=== PATIENT | male | born 1990 | race Caucasian/White ===

== ENCOUNTER 2024-01-30 13:42 | Outpatient (AMB) | payer OTHER, SELFPAY ==
--- NOTE | 2024-01-30 13:57 | MHC.PC.OV ---
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 Pt states that he has been getting ringing in his R ear almost every day now. Pt also states that he has been having R kidney pain that come and goes. Pt states that he had neck pain and he ca not lift things. 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 Pt c/o tinnitus worse in the morning some hearing loss and elevated BP at methadone clinic. Patient reports chronic right side LBP on and off pulsating', not related to physical activity and is concerned about kidney stones. He denies dysuria hematuria. Patient complains of chronic right shoulder pain worse when lifting or carrying heavy objects. He had bilateral carpal tunnel surgery in the past and would like to see hand surgeon to evaluate for recurrent carpal tunnel. Patient works at a [email or web address] business using his hands a lot. [facility] Surgical History (Updated 01/30/24 @ 14:12 by Jill Kilpatrick [facility]) History of surgical removal of ganglion cyst [place] teeth extracted Hx of hernia repair History of bilateral carpal tunnel release Family History Father Hypertension COPD (chronic obstructive pulmonary disease) Mother Mental health disorder Substance use disorder Social History (Updated 01/30/24 @ 15:03 by Lucia Cornelius MD) Household Members Other:: lives alone, has [email or web address], 11 daughter Housing: Apartment Patient Tobacco Use Status: Current everyday Tobacco user e-Cigarette/Vaping Use: Currently Using service: No Current occupational status: employed Cognitive needs: No Hearing needs: No Vision needs: No Questionnaire PHQ-9 Over the last 2 weeks, how often have you been bothered by any of the following problems? 1. Little interest or pleasure in doing things: several days 2. Feeling down, depressed, or hopeless: several days 3. Trouble falling or staying asleep, or sleeping too much: more than half the days 4. Feeling tired or having little energy: several days 5. Poor appetite or overeating: more than half the days 6. Feeling bad about yourself - or that you are a failure or have let yourself or your family down: several days 7. Trouble concentrating on things, such as reading the newspaper or watching television: several days 8. Moving or speaking so slowly that other people could have noticed. Or the opposite - being so fidgety or restless that you have been moving around a lot more than usual: not at all 9. Thoughts that you would be better off or of hurting yourself in some way: not at all Total score: 9 Depression Screening Interpretation: Negative Depression Screening Done: Yes Source: Developed by Drs. Sae Musa, Kandace Marcial, Jamar Meyer and colleagues, with an educational jay from [employer]. Thrive Questionnaire Date Thrive assessed: 01/30/24 I am a: Patient What is your living situation today?: I have a steady place to live Within the past 12 months, did the food you bought not last and you didn't have the money to get more?: Never true Within the past 12 months, did you worry whether your food would run out before you got money to buy more?: Never true Do you have trouble paying for medicines?: No Do you have trouble getting transportation to medical appointments?: No Do you have trouble paying your heating and electricity bill?: No Do you have trouble taking care of your child, family member or friend?: No Do you have trouble with day-to-day activities such as bathing, preparing meals, shopping, managing finances, etc.?: No Are you currently unemployed and looking for a job?: No Are you interested in more education?: No Please select the resources that you would like help with: Housing/Senior Care Currently or been in a relationship where the following occur: No concerns reported THRIVE Score: 0 AUDIT C Alcohol Use Questionnaire (AUDIT-C) 1. How often do you have a drink containing alcohol?: 2-3 times a week 2. How many drinks containing alcohol do you have on a typical day when you are drinking?: 3 or 4 3. How often do you have six or more drinks on one occasion?: Weekly Total Score: 7 BRITTANY-7 AMB Questionnaire BRITTANY-7 Date BRITTANY - 7 assessed: 01/30/24 Feeling nervous, anxious, or on edge: 2 = More than half the days Not being able to stop or control worryin = More than half the days Worrying too much about different things: 2 = More than half the days Trouble relaxin = More than half the days Being so restless that it is hard to sit still: 0 = Not at all Becoming easily annoyed or irritable: 2 = More than half the days Feeling afraid as if something awful might happen: 0 = Not at all Total BRITTANY-7 score (0-4 normal; 5-9 mild; 10-14 moderate; 15-21 severe): 10 Source: Developed by Drs. Sae Musa, Kandace Marcial, Jamar Meyer and colleagues, with an educational jay from [employer]. Review of Systems Const All systems reviewed & are unremarkable except as noted in HPI and below Reports no additional complaints Eyes Reports no additional complaints ENT Reports no additional complaints Card Reports no additional complaints Resp Reports no additional complaints GI Reports no additional complaints Reports no additional complaints Physical exam (Primary Care) Vital Signs: Last Vital Signs Pulse 86 01/30/24 14:03 BP 118/78 01/30/24 14:03 Pulse Ox 96 01/30/24 14:03 Oxygen Delivery Method Room Air 01/30/24 14:03 BMI result Body Mass Index 25.4 Tobacco/Smoking Status: Tobacco use Status Tobacco use date assessed 01/30/24 01/30/24 14:14 Patient Tobacco Use Status Current everyday Tobacco 01/30/24 14:14 e-Cigarette/Vaping Use Currently Using 01/30/24 14:14 PHQ-9: PHQ-9 Score PHQ-9: Total score 9 01/30/24 14:14 Depression Screening Interpretation: Negative Thrive Assessment: Date of Thrive Assessment Date Thrive assessed 01/30/24 01/30/24 14:14 Currently or been in a relationship where the following occur: No concerns reported Const General: no acute distress HENMT Head: Yes normal to inspection Ears: hearing grossly normal bilaterally Face and sinus: Yes normal facial exam Mouth: Normal oral and palatal mucosa present Throat: Yes posterior oropharynx normal Eyes General: appearance normal, both eyes and all related structures Neck Neck: Yes supple Resp Effort & Inspection: normal respiratory effort Auscultation: clear to auscultation bilaterally Cardio Rhythm: regular rhythm Heart sounds: S1 normal heart sound present and S2 normal heart sound present GI Inspection: Yes normal to inspection Palpation (GI): Soft to palpation Auscultation: normal bowel sounds Extrem Other: Decreased range of motion right shoulder no joint tenderness Assessment and Plan Assessment & Plan (1) Testicular swelling: Code(s): N50.89 - Other specified disorders of the male genital organs Plan: Obtain scrotal ultrasound (2) Carpal tunnel syndrome on both sides: Code(s): G56.03 - Carpal tunnel syndrome, bilateral upper limbs Plan: Referred to hand surgeon (3) Drug abuse and dependence: Comment: in Methadone clinic since 2020 Code(s): F19.20 - Other psychoactive substance dependence, uncomplicated (4) Annual physical exam: Code(s): Z00.00 - Encounter for general adult medical examination without abnormal findings Plan: Well-balanced diet regular physical activity discussed with the patient he will return for fasting blood work (5) Shoulder pain, right: Code(s): M25.511 - Pain in right shoulder Plan: Referred to physical therapy (6) Right flank pain: Code(s): R10.9 - Unspecified abdominal pain Plan: Obtain renal ultrasound to evaluate for nephrolithiasis (7) Hx of hepatitis C: Comment: s/p tx Code(s): Z86.19 - Personal history of other infectious and parasitic diseases (8) Hearing loss: Code(s): H91.90 - Unspecified hearing loss, unspecified ear Plan: Referred to a hearing test (9) HTN (hypertension): Code(s): I10 - Essential (primary) hypertension Plan: Start valsartan 40 mg follow-up in 2 months Orders: Orders US scrotum Today N50.89 - Other specified disorders of the male genital organs, Z00.00 - Encounter for general adult medical examination without abnormal findings Lipid Panel Today Z00.00 - Encounter for general adult medical examination without abnormal findings TSH reflex Free T4 Today Z00.00 - Encounter for general adult medical examination without abnormal findings US renal BI Today R10.9 - Unspecified abdominal pain Comprehensive [place]. Panel Fast Today Z00.00 - Encounter for general adult medical examination without abnormal findings Complete Blood Count Auto Diff Today Z00.00 - Encounter for general adult medical examination without abnormal findings PT Evaluation and Treatment Today M25.511 - Pain in right shoulder UA w Microscopic Today R10.9 - Unspecified abdominal pain Referrals Hand Surgery Referral F19.20 - Other psychoactive substance dependence, uncomplicated, G56.03 - Carpal tunnel syndrome, bilateral upper limbs, Z00.00 - Encounter for general adult medical examination without abnormal findings Speech and Hearing Referral H93.19 - Tinnitus, unspecified ear Medications: New valsartan 40 mg PO DAILY 90 tabs 0RF valsartan 40 mg PO BID 90 tabs 0RF Coding Level of Care Code New Pt Prev Care 18-39yr([id number] Diagnoses Testicular swelling N50.89 Carpal tunnel syndrome on both sides G56.03 Drug abuse and dependence F19.20 Annual physical exam Z00.00 Shoulder pain, right M25.511 Right flank pain R10.9 Hx of hepatitis C Z86.19 Hearing loss H91.90 HTN (hypertension) I10
[2024-01-30 14:03] VITALS: BP 118/78; PULSE 86; O2SAT 96; BMI 25.4
[2024-01-30 16:12] VITALS: BP 135/88
== END 2024-01-30 16:16 | disposition home or self-care (01) ==
PROVIDERS: PCP Internal Medicine; Visit Provider Internal Medicine
DX: N50.89 Other specified disorders of the male genital organs (principal); G56.03 Carpal tunnel syndrome, bilateral upper limbs; F19.20 Other psychoactive substance dependence, uncomplicated; Z00.00 Encounter for general adult medical examination without abnormal findings; M25.511 Pain in right shoulder; R10.9 Unspecified abdominal pain; Z86.19 Personal history of other infectious and parasitic diseases; H91.90 Unspecified hearing loss, unspecified ear; I10 Essential (primary) hypertension
CPT/HCPCS: 99385

== ENCOUNTER 2024-04-03 08:22 | Outpatient (REF) | payer OTHER, SELFPAY ==
--- NOTE | ~2024-04-03 | US_ITS ---
EXAMINATION: US SCROTUM CLINICAL INFORMATION: Swelling of testicles. COMPARISON: None available. TECHNIQUE: A sonogram of the scrotum was performed assessing rose-scale appearance and color Doppler flow. Spectral Doppler analysis of the arterial and venous flow were performed in the testes bilaterally. FINDINGS: RIGHT: Right testicle measures 5.4 x 2.5 x 3.7 cm, volume 26 mL. No focal testicular parenchymal lesions are visualized. Spectral Doppler analysis of the arterial and venous flow is normal in the right testis. Right epididymis is unremarkable. No right hydrocele or varicocele is seen. Right epididymal Doppler flow is normal. LEFT: Left testicle measures 5.4 x 2.2 x 3.8 cm, volume 24 mL. No focal testicular parenchymal lesions are visualized. Spectral Doppler analysis of the arterial and venous flow is normal in the left testis. Left epididymal head is normal in size. Small left epididymal head simple cyst is noted measuring up to 0.6 cm No left hydrocele or varicocele is seen. Left epididymal Doppler flow is normal. OTHER: No evidence of hernia in the left groin/lower left pelvis correlating to patient's region of pain and swelling US/US scrotum IMPRESSION: 1. Small simple left epididymal head cyst. Otherwise unremarkable testicular ultrasound. 2. No sonographic evidence of hernia in the left groin/left lower pelvis correlating to patient's region of pain and swelling. Electronically signed by: Clyde Calderon MD 04/03/2024 12:44 PM EDT
--- NOTE | ~2024-04-03 | US_ITS ---
EXAMINATION: US RETROPERITONEAL LIMITED (RENAL ONLY) CLINICAL INFORMATION: Right flank pain. COMPARISON: None available. TECHNIQUE: Multiple grayscale and color Doppler images of bilateral kidneys were obtained. FINDINGS: RIGHT KIDNEY: 12.1 x 4.4 x 5.8 cm (SAG x AP x TRV). The kidney is normal in size, contour, and echogenicity. Renal cortical thickness is normal. No calculi or focal parenchymal lesions. No hydronephrosis. LEFT KIDNEY: 11.8 x 6.3 x 5.9 cm (SAG x AP x TRV). The kidney is normal in size, contour, and echogenicity. Renal cortical thickness is normal. No calculi or focal parenchymal lesions. No hydronephrosis. US/US renal BI IMPRESSION: Unremarkable sonographic appearance of bilateral kidneys. Electronically signed by: Clyde Calderon MD 04/03/2024 12:30 PM EDT
== END 2024-04-03 08:23 | disposition home or self-care (01) ==
LOC: HO.HMGCX 08:22
PROVIDERS: PCP Internal Medicine; Visit Provider Internal Medicine
DX: R10.9 Unspecified abdominal pain (principal); N50.89 Other specified disorders of the male genital organs
CPT/HCPCS: 76775; 76870

== ENCOUNTER 2024-04-09 09:52 | Outpatient (AMB) | payer OTHER, SELFPAY ==
[2024-04-09 10:01] VITALS: BP 120/62; PULSE 68; O2SAT 97; BMI 24.5
--- NOTE | 2024-04-09 10:01 | MHC.PC.OV ---
Vital Signs 04/09/24 10:01 Height 5 ft 8 in Weight 161 lb BMI 24.5 BP 120/62 Blood Pressure Location Lt brachial Position Sitting Pulse 68 Pulse Source Pulse Oximeter Pulse Oximetry (%) 97 Oxygen Delivery Method Room Air Intake Visit Reasons: 2m f/u Intake Note: Pt is here today for 2 months follow up visit on test results. Allergies amoxicillin Allergy (Verified 04/09/24 10:10) rash Medication List - Last Reconciled 04/09/24 by Lucia Cornelius MD methadone 30 mg subcut DAILY valsartan 40 mg PO DAILY Tobacco use date assessed: 01/30/24 Dental Screening Dental Screen Date: 01/30/24 HPI 2m f/u HPI Details Patient presents for the follow-up on hypertension controlled on valsartan. Patient complains of persistent discomfort in the left testicle denies dysuria urinary frequency, change in bowel function fever chills. Patient complains of persistent tinnitus in the right ear but denies any significant hearing loss. 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 Housing: Apartment Patient Tobacco Use Status: Current everyday Tobacco user e-Cigarette/Vaping Use: Currently Using service: No Current occupational status: employed Cognitive needs: No Hearing needs: No Vision needs: No Questionnaire Thrive Questionnaire Date Thrive assessed: 01/30/24 I am a: Patient What is your living situation today?: I have a steady place to live Within the past 12 months, did the food you bought not last and you didn't have the money to get more?: Never true Within the past 12 months, did you worry whether your food would run out before you got money to buy more?: Never true Do you have trouble paying for medicines?: No Do you have trouble getting transportation to medical appointments?: No Do you have trouble paying your heating and electricity bill?: No Do you have trouble taking care of your child, family member or friend?: No Do you have trouble with day-to-day activities such as bathing, preparing meals, shopping, managing finances, etc.?: No Are you currently unemployed and looking for a job?: No Are you interested in more education?: No Please select the resources that you would like help with: None Currently or been in a relationship where the following occur: No concerns reported THRIVE Score: 0 BRITTANY-7 AMB Questionnaire BRITTANY-7 Date BRITTANY - 7 assessed: 01/30/24 Source: Developed by Drs. Sae Musa, Kandace Marcial, Jamar Meyer and colleagues, with an educational jay from [email or web address]. Review of Systems Const All systems reviewed & are unremarkable except as noted in HPI and below Eyes Reports no additional complaints ENT Reports no additional complaints Card Reports no additional complaints Resp Reports no additional complaints GI Reports no additional complaints Reports no additional complaints Physical exam (Primary Care) Vital Signs: Last Vital Signs Pulse 68 04/09/24 10:01 BP 120/62 04/09/24 10:01 Pulse Ox 97 04/09/24 10:01 Oxygen Delivery Method Room Air 04/09/24 10:01 BMI result Body Mass Index 24.5 Tobacco/Smoking Status: Tobacco use Status Tobacco use date assessed 01/30/24 04/09/24 10:02 Patient Tobacco Use Status Current everyday Tobacco 04/09/24 10:02 e-Cigarette/Vaping Use Currently Using 04/09/24 10:02 Thrive Assessment: Date of Thrive Assessment Date Thrive assessed 01/30/24 04/09/24 10:02 Currently or been in a relationship where the following occur: No concerns reported Const General: no acute distress HENMT Head: Yes normal to inspection Ears: hearing grossly normal bilaterally and TM's normal bilaterally Face and sinus: Yes normal facial exam Neck Neck: Yes supple Resp Effort & Inspection: normal respiratory effort Auscultation: clear to auscultation bilaterally Cardio Rhythm: regular rhythm Heart sounds: S1 normal heart sound present and S2 normal heart sound present GI Inspection: Yes normal to inspection Palpation (GI): Soft to palpation Percussion: Yes normal to percussion Auscultation: normal bowel sounds Back/Spine/Pelvis Other: THERE IS A 4 CM MOBILE SUBCUTANEOUS MASS IN RIGHT MID PARALUMBAR REGION, slightly tender, no overlying skin changes Coding Level of Care Code Est Pt Level 4 (93486) Diagnoses Tinnitus H93.19 Subcutaneous mass of back R22.2 HTN (hypertension) I10 Hx of hepatitis C Z86.19 Testicular pain, left N50.812 Assessment & Plan Assessment & Plan (1) Tinnitus: Code(s): H93.19 - Tinnitus, unspecified ear Category: Medical Plan: Referred to ENT (2) Subcutaneous mass of back: Comment: R paraspinal lumbar region Code(s): R22.2 - Localized swelling, mass and lump, trunk Category: Medical Plan: Obtain soft tissue ultrasound to evaluate for possible lipoma (3) HTN (hypertension): Code(s): I10 - Essential (primary) hypertension Category: Medical Plan: Continue valsartan (4) Hx of hepatitis C: Comment: s/p tx Code(s): Z86.19 - Personal history of other infectious and parasitic diseases Category: Medical Plan: Check hepatitis-C viral load (5) Testicular pain, left: Comment: Scrotum US left 0.6 cm epididymal head cyst 03/2024 Code(s): N50.812 - Left testicular pain Category: Medical Plan: Referred to urology Orders: Orders Comprehensive [place]. Panel Fast Today I10 - Essential (primary) hypertension, Z00.00 - Encounter for general adult medical examination without abnormal findings, Z86.19 - Personal history of other infectious and parasitic diseases US retroperitoneal limited Today R22.2 - Localized swelling, mass and lump, trunk Complete Blood Count Auto Diff Today I10 - Essential (primary) hypertension, Z00.00 - Encounter for general adult medical examination without abnormal findings, Z86.19 - Personal history of other infectious and parasitic diseases Lipid Panel Today I10 - Essential (primary) hypertension, Z00.00 - Encounter for general adult medical examination without abnormal findings, Z86.19 - Personal history of other infectious and parasitic diseases Hepatitis C Viral Load Today I10 - Essential (primary) hypertension, Z00.00 - Encounter for general adult medical examination without abnormal findings, Z86.19 - Personal history of other infectious and parasitic diseases UA CC w/rflx Micro + Cult Today I10 - Essential (primary) hypertension, Z00.00 - Encounter for general adult medical examination without abnormal findings, Z86.19 - Personal history of other infectious and parasitic diseases Referrals Urology Referral N50.812 - Left testicular pain Ear/Nose/Throat Referral H93.19 - Tinnitus, unspecified ear, I10 - Essential (primary) hypertension, Z00.00 - Encounter for general adult medical examination without abnormal findings, Z86.19 - Personal history of other infectious and parasitic diseases Medications: Refilled valsartan 40 mg PO DAILY 90 tabs 3RF
== END 2024-04-09 10:55 | disposition home or self-care (01) ==
PROVIDERS: PCP Internal Medicine; Visit Provider Internal Medicine
DX: H93.19 Tinnitus, unspecified ear (principal); R22.2 Localized swelling, mass and lump, trunk; I10 Essential (primary) hypertension; Z86.19 Personal history of other infectious and parasitic diseases; N50.812 Left testicular pain

== ENCOUNTER → 2024-04-09 09:52 | Outpatient (BNVA) | payer OTHER, SELFPAY | PROVIDERS: PCP Internal Medicine; Visit Provider Internal Medicine | DX: H93.19 Tinnitus, unspecified ear (principal); R22.2 Localized swelling, mass and lump, trunk; I10 Essential (primary) hypertension; N50.812 Left testicular pain; Z86.19 Personal history of other infectious and parasitic diseases | CPT/HCPCS: 99212 ==

== ENCOUNTER 2024-04-22 10:00 | Outpatient (RCR) | payer OTHER, SELFPAY ==
--- NOTE | 2024-04-03 13:14 | MHC.PT.EP ---
[facility] [place] Office [place] Office [place] Office [address] [phone] F: [phone] F: [phone] F: [phone] F: [phone] Physical Therapy Plan of Care Date of Evaluation: 04/03/24 Date of Surgery: Diagnosis: R shoulder pain Assessment: Patient is a 34 year old R handed male who presents with s/s consistent with R shoulder pain. 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 Patient past medical history includes chronic shoulder pain. Current impairments include pain, posture, ROM, strength, activity tolerance and functional mobility. Functional limitations include decreased ability to reach, lift, carry, push, pull and perform some work duties. Patient is motivated with good rehab potential. Skilled PT will address impairments and functional limitations in order to achieve goals. 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 Manual therapy to restore motion and function. Therapeutic exercise to improve strength and flexibility. Neuromuscular re-education for posture and balance. Therapeutic activities to return to functional activities of daily living. Electronically signed by: Charles Charles PT Please sign and return to therapist. Thank you for your referral.
--- NOTE | 2024-09-25 07:40 | MHC.PT.DC ---
[facility] [place] Office [place] Office [place] Office [address] [phone] F: [phone] F: [phone] F: [phone] F: [phone] Physical Therapy Discharge Report Diagnosis: R shoulder pain Date of Surgery: Date of Evaluation: 04/03/24 Date of Discharge: Treatments to Date: 2 Cancellations to Date: No Shows to Date: Discharge Status: Patient Elected to Stop Discharge Summary: 04/22/24: pt progressing with strength. compliant with HEP. late reportedly due to traffic. progress as tolerated and update HEP NV. Patient is a 34 year old R handed male who presents with s/s consistent with R shoulder pain. 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 Patient past medical history includes chronic shoulder pain. Current impairments include pain, posture, ROM, strength, activity tolerance and functional mobility. Functional limitations include decreased ability to reach, lift, carry, push, pull and perform some work duties. Patient is motivated with good rehab potential. Skilled PT will address impairments and functional limitations in order to achieve goals. Electronically signed by: Charles Charles, PT Please sign and return to therapist. Thank you for your referral.
== END 2024-09-25 07:40 | disposition home or self-care (01) ==
LOC: HO.PTCHIC 10:00
PROVIDERS: PCP Internal Medicine; Visit Provider Internal Medicine
DX: M25.511 Pain in right shoulder (principal)
CPT/HCPCS: 97110; 97161

== ENCOUNTER 2024-10-02 10:57 | Outpatient (AMB) | payer OTHER, SELFPAY ==
--- NOTE | 2024-10-02 11:04 | MHC.OFFVIS ---
Intake Visit Reasons: Followup Intake Note: Pt presents to the office today for a follow up. Allergies amoxicillin Allergy (Verified 10/12/24 10:55) rash HPI Comments Details: Vel is a pleasant male. He is a patient of Dr. Cornelius. 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 Housing: Apartment Patient Tobacco Use Status: Current everyday Tobacco user e-Cigarette/Vaping Use: Currently Using service: No Current occupational status: employed Cognitive needs: No Hearing needs: No Vision needs: No Review of Systems Const Denies chills and Denies fever(s) Card Reports no additional complaints and Denies syncope Resp Denies cough GI Denies abdominal pain and Denies heartburn Reports as per HPI and Denies change in libido Neuro Denies syncope Psych Denies change in libido Endo Denies change in libido Physical Exam Const General: cooperative, healthy appearing, comfortable and no acute distress Orientation/consciousness: patient oriented x3 HEENT Face and sinus: Yes normal facial exam Mouth: moist mucous membranes Neck Neck: Yes normal visual inspection, Yes full ROM and Yes trachea midline Chest Chest palpation & inspection: normal inspection of the chest Resp Effort & Inspection: normal respiratory effort, able to speak in complete sentences and no respiratory distress GI Inspection: Yes normal to inspection Back/Spine/Pelvis Cervical Spine: normal cervical lordosis Thoracic/Lumbar Spine: thoracic and lumbar spine normal to inspection Skin General skin exam: no rashes or lesions noted Neuro General: patient oriented x3, gait normal, tone normal and moves all extremities Extrem General: Yes normal to inspection and Yes capillary refill normal Assessment & Plan Assessment & Plan (1) Testicular pain, left: Comment: Scrotum US left 0.6 cm epididymal head cyst 03/2024 Code(s): N50.812 - Left testicular pain Category: Medical Plan Reassurance provided Follow-up. Patient Instructions: This note is constructed using voice recognition software. While every effort has been made to ensure accuracy canary raiser errors may have been included. Imaging studies, laboratory and physical exam results were discussed and reviewed in detail. No major barriers to patient understanding were identified. An opportunity to ask questions regarding the treatment plan was provided. All questions were answered. The patient expressed understanding and agreement with the above treatment plan. The patient is aware they should contact our office by phone for worsening of their current condition or the appearance of new urologic symptoms. Compliance is encouraged with any medications and followup testing that is ordered. It is a privilege to participate in the urologic care of your patient. If you have any questions or concerns regarding treatment for the above conditions, or other urologic issues, please do not hesitate to contact me. The office telephone contact is [phone]. Sincerely, Dr Ap Mittal MD, [facility] - Urology Compassionate Specialist Care for the Genitourinary System Coding Level of Care Code Est Pt Level 3 (59049) Diagnoses Testicular pain, left N50.812
== END 2024-10-02 12:16 | disposition home or self-care (01) ==
LOC: HO.HUSH 10:58
PROVIDERS: PCP Internal Medicine; Visit Provider Urology
DX: N50.812 Left testicular pain (principal)
CPT/HCPCS: 99213

== ENCOUNTER → 2024-10-02 10:57 | Outpatient (BNVA) | payer OTHER, SELFPAY | PROVIDERS: PCP Internal Medicine; Visit Provider Urology | DX: N50.812 Left testicular pain (principal); N50.3 Cyst of epididymis | CPT/HCPCS: 99212 ==

== ENCOUNTER 2024-10-12 10:46 | Outpatient (AMB) | payer OTHER, SELFPAY ==
[2024-10-12 10:49] VITALS: BP 110/76; PULSE 86; RESP 18; TEMP 37.1; O2SAT 97; BMI 20.7
--- NOTE | 2024-10-12 10:49 | A.OFFPC_ITS ---
Vital Signs 10/12/24 10:49 Height 5 ft 8 in Weight 136 lb BMI 20.7 BP 110/76 Blood Pressure Location Rt brachial Position Sitting Respiration 18 Pulse 86 Pulse Source Pulse Oximeter Temp 98.8 F Temp Source Oral Pulse Oximetry (%) 97 Oxygen Delivery Method Room Air Intake Visit Reasons: 6 months f/up Intake Note: Pt is here today for 6 months follow up visit. Pt states that he has been having pain in his kidneys. Pt states that he lost a lot of weight every time he eats he gets stomach pains and heart pains. Allergies amoxicillin Allergy (Verified 10/12/24 10:55) rash Medication List - Last Reconciled 10/12/24 by Lucia Cornelius MD methadone 30 mg subcut DAILY valsartan 40 mg PO DAILY Tobacco use date assessed: 10/12/24 Dental Screening Dental Screen Date: 10/12/24 Did you have a dental visit in the last 12 months?: Yes Did you have a dental problem in the last 6 months where you did not have access to dental care?: No Was dental information given to patient?: Patient has dentist HPI 6 months f/up HPI Details Pt complains of L sided CP worse after eating and 30 lbs weight loss within last month. He eats mainly chicken and has decreased appetite. Pt denies abd pain, heartburn, change in BMs, hematochezia melena, fever, chills, night sweats, exercise related palpitations or CP, pleurisy. He is very anxious and upset about his heart pain for the last 3 years and that nothing has been done about his heart pain . He denies recent drugs use. 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 1. Little interest or pleasure in doing things: nearly every day 2. Feeling down, depressed, or hopeless: nearly every day 3. Trouble falling or staying asleep, or sleeping too much: nearly every day 4. Feeling tired or having little energy: nearly every day 5. Poor appetite or overeating: nearly every day 6. Feeling bad about yourself - or that you are a failure or have let yourself or your family down: more than half the days 7. Trouble concentrating on things, such as reading the newspaper or watching television: nearly every day 8. Moving or speaking so slowly that other people could have noticed. Or the opposite - being so fidgety or restless that you have been moving around a lot more than usual: more than half the days 9. Thoughts that you would be better off or of hurting yourself in some way: not at all Total score: 22 Depression Screening Interpretation: Positive (pt declined counseling or medications) Depression Screening Follow-up: Existing condition Depression Screening Done: Yes 08090 - PHQ-9 Billing: Yes Source: Developed by Drs. Sae Musa, Kandace Marcial, Jamar Meyer and colleagues, with an educational jay from [employer] Thrive Questionnaire Date Thrive assessed: 10/12/24 I am a: Patient What is your living situation today?: I have a steady place to live Within the past 12 months, did the food you bought not last and you didn't have the money to get more?: I choose not to answer this question Within the past 12 months, did you worry whether your food would run out before you got money to buy more?: I choose not to answer this question Do you have trouble paying for medicines?: I choose not to answer this question Do you have trouble getting transportation to medical appointments?: I choose not to answer this question Do you have trouble paying your heating and electricity bill?: I choose not to answer this question Do you have trouble taking care of your child, family member or friend?: No Do you have trouble with day-to-day activities such as bathing, preparing meals, shopping, managing finances, etc.?: I choose not to answer this question Are you currently unemployed and looking for a job?: I choose not to answer this question Are you interested in more education?: No Please select the resources that you would like help with: None Currently or been in a relationship where the following occur: No concerns reported THRIVE Score: 0 AUDIT C Alcohol Use Questionnaire (AUDIT-C) 1. How often do you have a drink containing alcohol?: Monthly or less 2. How many drinks containing alcohol do you have on a typical day when you are drinking?: 1 or 2 3. How often do you have six or more drinks on one occasion?: Less than monthly Total Score: 2 BRITTANY-7 AMB Questionnaire BRITTANY-7 Date BRITTANY - 7 assessed: 10/12/24 Feeling nervous, anxious, or on edge: 3 = Nearly every day Not being able to stop or control worryin = Nearly every day Worrying too much about different things: 3 = Nearly every day Trouble relaxin = Nearly every day Being so restless that it is hard to sit still: 3 = Nearly every day Becoming easily annoyed or irritable: 3 = Nearly every day Feeling afraid as if something awful might happen: 3 = Nearly every day Total BRITTANY-7 score (0-4 normal; 5-9 mild; 10-14 moderate; 15-21 severe): 21 Source: Developed by Drs. Sae Musa, Kandace Marcial, Jamar Meyer and colleagues, with an educational jay from [employer] BRITTANY-7 Assessment Billing BRITTANY-7 Assessment Tool: BRITTANY-7 Assessment 31277 Review of Systems Const All systems reviewed & are unremarkable except as noted in HPI and below Eyes Reports no additional complaints ENT Reports no additional complaints Card Reports no additional complaints Resp Reports no additional complaints GI Reports no additional complaints Reports no additional complaints Musc Reports no additional complaints Physical exam (Primary Care) Vital Signs: Last Vital Signs Temp 98.8 F 10/12/24 10:49 Pulse 86 10/12/24 10:49 Resp 18 10/12/24 10:49 BP 110/76 10/12/24 10:49 Pulse Ox 97 10/12/24 10:49 Oxygen Delivery Method Room Air 10/12/24 10:49 BMI result Body Mass Index 20.7 Tobacco/Smoking Status: Tobacco use Status Tobacco use date assessed 10/12/24 10/12/24 10:50 Patient Tobacco Use Status Current everyday Tobacco 10/12/24 10:49 e-Cigarette/Vaping Use Currently Using 10/12/24 10:49 PHQ-9: PHQ-9 Score PHQ-9: Total score 22 10/12/24 13:14 Depression Screening Interpretation: Positive (pt declined counseling or medications) Depression Screening Follow-up: Existing condition Thrive Assessment: Date of Thrive Assessment Date Thrive assessed 10/12/24 10/12/24 10:57 Currently or been in a relationship where the following occur: No concerns reported Const General: anxious HENMT Head: Yes normal to inspection Ears: TM's normal bilaterally Throat: Yes posterior oropharynx normal Eyes General: appearance normal, both eyes and all related structures Neck Neck: Yes no lymphadenopathy and Yes supple Resp Effort & Inspection: normal respiratory effort Auscultation: clear to auscultation bilaterally Cardio Rhythm: regular rhythm Heart sounds: S1 normal heart sound present and S2 normal heart sound present GI Inspection: Yes normal to inspection Palpation (GI): Soft to palpation Percussion: Yes normal to percussion Auscultation: normal bowel sounds Coding Level of Care Code Est Pt Level 3 (90016) Diagnoses Drug abuse and dependence F19.20 HTN (hypertension) I10 Weight loss R63.4 Chest pain R07.9 Anxiety and depression F41.9; F32.A Additional Codes BRITTANY-7 Assessment Billing - BRITTANY-7 Assessment Tool: BRITTANY-7 Assessment 82795 ([id number]) PHQ-9 - 04910 - PHQ-9 Billing: Yes ([id number]) Assessment & Plan Assessment & Plan (1) Drug abuse and dependence: Comment: in Methadone clinic since 2020 Code(s): F19.20 - Other psychoactive substance dependence, uncomplicated Category: Medical Plan: f/u with Methadone clinic (2) HTN (hypertension): Code(s): I10 - Essential (primary) hypertension Category: Medical Plan: on Valsartan (3) Weight loss: Code(s): R63.4 - Abnormal weight loss Category: Medical Plan: check labs including TSH, CBC, CMP. (4) Chest pain: Code(s): R07.9 - Chest pain, unspecified Category: Medical Plan: EKG showed NSR, no ST-T changes. Obtain Echo. When mentioned possibility of GI related CP like esophagitis, gastritis,PUD patient became very agitated and upset that his insurance will be charged for unnecessary tests and specialists referrals and he wants to change PCP. (5) Anxiety and depression: Code(s): F41.9 - Anxiety disorder, unspecified; F32.A - Depression, unspecified Category: Medical Plan: Pt is not interested in counseling or medications Orders: Orders TSH reflex Free T4 Today - Other psychoactive substance dependence, uncomplicated, I10 - Essential (primary) hypertension, R63.4 - Abnormal weight loss Hemoglobin A1c Today . - Other psychoactive substance dependence, uncomplicated, I10 - Essential (primary) hypertension, R63.4 - Abnormal weight loss CA echo transthoracic complete Today - Other psychoactive substance dependence, uncomplicated, I10 - Essential (primary) hypertension, R63.4 - Abnormal weight loss Comprehensive [place]. Panel Fast Today - Other psychoactive substance dependence, uncomplicated, I10 - Essential (primary) hypertension, R63.4 - Abnormal weight loss Complete Blood Count Auto Diff Today - Other psychoactive substance dependence, uncomplicated, I10 - Essential (primary) hypertension, R63.4 - Abnormal weight loss Lipid Panel Today . - Other psychoactive substance dependence, uncomplicated, I10 - Essential (primary) hypertension, R63.4 - Abnormal weight loss HIV Ab/Ag Today . - Other psychoactive substance dependence, uncomplicated, I10 - Essential (primary) hypertension, R63.4 - Abnormal weight loss UA w Microscopic Today . - Other psychoactive substance dependence, uncomplicated, I10 - Essential (primary) hypertension, R63.4 - Abnormal weight loss AMB EKG-In Office Today I10 - Essential (primary) hypertension, R63.4 - Abnormal weight loss
== END 2024-10-12 11:38 | disposition home or self-care (01) ==
LOC: HO.HMCC 10:47
PROVIDERS: PCP Internal Medicine; Visit Provider Internal Medicine
DX: F19.20 Other psychoactive substance dependence, uncomplicated (principal); I10 Essential (primary) hypertension; R63.4 Abnormal weight loss; R07.9 Chest pain, unspecified; F41.9 Anxiety disorder, unspecified; F32.A Depression, unspecified

== ENCOUNTER 2024-10-12 10:46 | Outpatient (REF) | payer OTHER, SELFPAY ==
--- NOTE | ~2024-10-12 | XR_ITS ---
EXAMINATION: XR CHEST 2 VIEWS HISTORY: I10 - Essential (primary) hypertension COMPARISON: There are no prior studies for comparison. FINDINGS: PA and lateral views of the chest are submitted. The lungs are expanded and clear. There is no pleural effusion, pneumothorax, or pulmonary vascular congestion. The heart is normal in size. The bones are intact. XR/XR chest 2V IMPRESSION: Normal examination of the chest. Electronically signed by: Sae Cardenas MD 10/12/2024 03:47 PM EDT
[2024-10-12 13:05] LABS: MANUAL DIFF FLAG NO
[2024-10-12 13:16] LABS: Basophils Absolute Auto 0.1 X10*3/uL (0.0-0.2); Basophils Percent Auto 1.1 % (0-2); Eosinophils Absolute Auto 0.2 X10*3/uL (0.0-0.4); Eosinophils Percent Auto 2.9 % (0-4); Hematocrit 41.6 % (42.0-52.0); Hemoglobin 14.1 g/dl (14.0-18.0); Imm Gran Abs Auto 0.03 X10*3/uL (0.00-0.03); Imm Gran Pct Auto 0.4 % (0.0-0.4); Lymphocytes Absolute Auto 2.1 X10*3/uL (1.2-4.9); Lymphocytes Percent Auto 25.4 % (20-40); Mean Corpuscular HGB Conc 33.9 g/dl (31.0-36.0); Mean Corpuscular Hemoglobin 29.6 pg (27.0-33.0); Mean Corpuscular Volume 87.4 fL (80.0-98.0); Mean Platelet Volume 8.9 fL (9.4-12.4); Monocytes Absolute Auto 0.6 X10*3/uL (0.1-1.2); Monocytes Percent Auto 7.2 % (2-11); Neutrophils Absolute Auto 5.3 x10*3/uL (2.0-8.3); Platelet Count 323 X10*3/uL (160-400); Red Blood Count 4.76 X10*6/uL (4.60-5.80); Red Cell Distribution Width 12.5 % (11.0-16.0); White Blood Count 8.3 X10*3/uL (4.8-10.8)
[2024-10-12 13:24] LABS: Appearance Urine Clear; Color Urine Yellow; Glucose Urine UA Negative (Negative); Leukocyte Esterase Urine Negative (Negative); Nitrite Urine Negative (Negative); PH 5.5 (5.0-9.0); Urine Blood Negative (Negative); Urine Ketones Trace mg/dL (Negative); Urine Protein Negative (Neg-Trace)
[2024-10-12 13:32] LABS: Estimated Average Glucose 108 mg/dL; Hemoglobin A1C 129.6578 umol/L; Hemoglobin A1c % 5.4 % (<6.0)
[2024-10-12 13:33] LABS: Bacteria Urine None Seen (None Seen); Hyaline Casts Urine 0-2 /LPF (0-2); RBC Urine 0-2 /HPF (0-2); Squamous Epithelial Cell Urine 0-2 /HPF (0-2); WBC Urine 0-5 /HPF (0-5)
[2024-10-12 14:16] LABS: Alanine Aminotransferase 11 U/L (0-40); Albumin Level 4.6 g/dL (3.5-5.0); Alkaline Phosphatase 58 U/L (39-117); Anion Gap 9 (12-20); Aspartate Amino Transferase 23 U/L (5-37); Bilirubin Total 2.2 mg/dL (0.0-1.0); Blood Urea Nitrogen 10 mg/dL (9-16); Calcium 9.7 mg/dL (8.4-10.2); Carbon Dioxide 26 mmol/L (22-29); Chloride 107 mmol/L (96-108); Cholesterol 270 mg/dL (<200); Estimated Glomerular Filt Rate > 60; Glucose Fasting 96 mg/dL (60-99); HDL Cholesterol 47 mg/dL (>40); LDL Cholesterol Calculated 202 mg/dL (<100); Potassium 4.4 mmol/L (3.3-5.1); Sodium 138 mmol/L (135-145); TSH reflex Free T4 0.56 uIU/mL (0.32-4.0); Total Protein 7.2 g/dL (6.5-8.0); Triglycerides 109 mg/dL (<150)
[2024-10-13 04:58] LABS: HIV AB/AG Nonreactive (Nonreactive); HIV Num 1 0.06 S/CO (0.00-0.99)
== END 2024-10-12 10:47 | disposition home or self-care (01) ==
LOC: HO.HMGCX 10:46
PROVIDERS: PCP Internal Medicine; Visit Provider Internal Medicine
DX: F19.20 Other psychoactive substance dependence, uncomplicated (principal); I10 Essential (primary) hypertension; R63.4 Abnormal weight loss; R07.9 Chest pain, unspecified; F41.9 Anxiety disorder, unspecified; F32.A Depression, unspecified; Z79.899 Other long term (current) drug therapy
CPT/HCPCS: 36415; 71046; 80053; 80061; 81001; 83036; 84443; 85025; 87389; 96127; 99212

== ENCOUNTER → 2024-10-12 11:59 | Outpatient (BNV) | payer OTHER, SELFPAY | PROVIDERS: PCP Internal Medicine; Visit Provider Radiology Diagnostic Radiology | DX: I10 Essential (primary) hypertension (principal) | CPT/HCPCS: 71046 ==